=== PATIENT | male | born 1955 | race Caucasian/White ===

== ENCOUNTER → 2021-05-06 | Outpatient (CLI) | payer MEDICARE, OTHER ==
[2021-05-06 16:09] LABS: BILIRUBIN,URINE NEGATIVE (NEGATIVE); CLARITY,URINE CLEAR; COLOR,URINE YELLOW; GLUCOSE, URINE (UA) NEGATIVE (NEGATIVE); KETONES,URINE NEGATIVE (NEGATIVE); LEUKOCYTE ESTERASE ,URINE NEGATIVE (NEGATIVE); NITRITE,URINE NEGATIVE (NEGATIVE); PROTEIN,URINE NEGATIVE (NEGATIVE)
[2021-05-06 16:10] LABS: BASOPHILS % (AUTO) 1 % (0-10); EOSINOPHILS # (AUTO) 0.2 10^3/uL (0.0-0.3); EOSINOPHILS % (AUTO) 3 % (0-10); HEMATOCRIT 42 % (40-54); HEMOGLOBIN 13.7 g/dL (13.3-17.7); LYMPHOCYTES # (AUTO) 1.6 10^3/uL (1.0-4.0); LYMPHOCYTES % (AUTO) 28 % (12-44); MEAN CORPUSCULAR HEMOGLOBIN 30 pg (25-34); MEAN CORPUSCULAR HGB CONC 33 g/dL (32-36); MEAN CORPUSCULAR VOLUME 92 fL (80-99); MEAN PLATELET VOLUME 8.9 fL (9.0-12.2); MONOCYTES # (AUTO) 0.6 10^3/uL (0.0-1.0); MONOCYTES % (AUTO) 10 % (0-12); NEUTROPHILS # (AUTO) 3.3 10^3/uL (1.8-7.8); NEUTROPHILS % (AUTO) 58 % (42-75); PLATELET COUNT 323 10^3/uL (130-400); WHITE BLOOD COUNT 5.6 10^3/uL (4.3-11.0)
[2021-05-06 16:18] LABS: BACTERIA,URINE NEGATIVE /HPF; SQUAMOUS EPITHELIAL CELL,UR RARE /HPF
[2021-05-06 16:30] LABS: POTASSIUM 4.2 MMOL/L (3.6-5.0)
[2021-05-06 16:31] LABS: CALCIUM 9.1 MG/DL (8.5-10.1); INR 0.9 (0.8-1.4); PROTHROMBIN TIME PATIENT 12.8 SEC (12.2-14.7)
[2021-05-06 16:36] LABS: CREATININE SERUM 0.99 MG/DL (0.60-1.30)
== END ==
LOC: CARD 15:28 → EDBD 15:28
PROVIDERS: ATTEND Orthopaedic Surgery
DX: Z01.89 Encounter for other specified special examinations (principal)
CPT/HCPCS: 36415; 80048; 81000; 85025; 85610; 93005

== ENCOUNTER → 2021-05-06 | Outpatient (CLI) | payer MEDICARE, OTHER ==
--- NOTE | 2021-05-06 16:48 | Diagnostic Imaging Report ---
INDICATION: Preoperative evaluation EXAMINATION: PA and lateral views of the chest are obtained. COMPARISON: No previous study is available for comparison at this time. FINDINGS: Heart size and pulmonary vasculature are within normal limits, and the lungs are clear, bilaterally. IMPRESSION: Unremarkable chest. Dictated by: Dictated on workstation # [id number]
== END ==
LOC: EDBD → ORTHO 14:53
PROVIDERS: ATTEND Orthopaedic Surgery
DX: Z01.810 Encounter for preprocedural cardiovascular examination (principal); M17.12 Unilateral primary osteoarthritis, left knee
CPT/HCPCS: 71046; G0463; 99203

== ENCOUNTER 2021-05-15 05:33 | Outpatient (CLI) | payer MEDICARE, OTHER ==
[~2021-05-15] VITALS: Ht 180.3 cm; Wt 63.8 kg
[2021-05-15 08:04] VITALS: BP 143/73
[2021-05-15] MEDS ORDERED: MELO15TA39 PO (12:09)
[2021-05-15] MEDS ORDERED: ASCO100024 PO (12:09)
[2021-05-15] MEDS ORDERED: CALC-250 PO (12:09)
[2021-05-15] MEDS ORDERED: MULT-1056 PO (12:09)
== END 2021-05-15 12:14 ==
LOC: PREOP 05:33 → EDSTATUS 08:00 → PREOP 12:14
PROVIDERS: ATTEND Orthopaedic Surgery
DX: Z01.812 Encounter for preprocedural laboratory examination (principal); M17.12 Unilateral primary osteoarthritis, left knee; Z20.822 Contact with and (suspected) exposure to COVID-19
CPT/HCPCS: 87081; 87635

== ENCOUNTER → 2021-05-15 | Outpatient (CLI) | payer MEDICARE, OTHER ==
[~2021-05-15] MED LIST: ASCO100024 PO; CALC-250 PO; MELO15TA39 PO; MULT-1056 PO
--- NOTE | 2021-05-15 15:08 | Diagnostic Imaging Report ---
EXAMINATION: Left knee radiographs, 4 views. COMPARISON: None. HISTORY: 65-year-old male, left knee pain. FINDINGS: There is severe medial compartment joint space loss and patellofemoral compartment joint space loss. There is no knee joint effusion. There are small patellofemoral compartment osteophytes. There is no identified acute fracture. There is no radiopaque foreign body. The patella is normally positioned. IMPRESSION: Severe medial and patellofemoral compartment osteoarthritis without knee joint effusion. Dictated by: Dictated on workstation # [id number]
== END ==
LOC: RAD 14:21
PROVIDERS: ATTEND Orthopaedic Surgery
DX: M17.12 Unilateral primary osteoarthritis, left knee (principal)
CPT/HCPCS: 73564

== ENCOUNTER 2021-05-19 08:00 | Inpatient (IN) | payer MEDICARE, OTHER ==
[~2021-05-19] VITALS: Ht 180.3 cm; Wt 63.8 kg
[2021-05-19] VITALS (10 sets, daily range): BP systolic 98–136; BP diastolic 63–84
[2021-05-19] MEDS ORDERED: TRANEXAMIC ACID INJECTION 3,000 MG, SODIUM CHLORIDE 0.9% IRRIGATIO 150 ML IR ONE ×2 (08:45)
[2021-05-19] MEDS ORDERED: ceFAZolin INJECTION 1,000 MG in WATER (STERILE) FOR INJECTION 10 ML IV ONE (09:00)
[2021-05-19] MEDS: LACTATED RINGERS 1,000 ML IV PRN ×2 (09:08→10:12)
[2021-05-19] MEDS ORDERED: BISACODYL 5 MG (DULCOLAX) TABLET PO PRN (13:00)
[2021-05-19] MEDS ORDERED: ACETAMINOPHEN 500 MG TAB (TYLENOL) PO PRN (13:00)
[2021-05-19] MEDS ORDERED: ONDANSETRON 4 MG/2 ML (SDV) Z0FRAN IVP PRN (13:00)
[2021-05-19] MEDS ORDERED: HYDROmorphone 2 MG/ML VIAL (DILAUDID) IV ONE (13:00)
[2021-05-19] MEDS ORDERED: morphine INJ 4 MG/ML 1 ML (VIAL/SYRINGE) IV PRN (13:00)
[2021-05-19] MEDS ORDERED: NALOXONE 0.4 MG/ML 1 ML (NARCAN) VIAL IV PRN (13:00)
[2021-05-19] MEDS ORDERED: MILK OF MAGNESIA 400 MG/5 ML 30 ML UDC PO PRN (13:00)
[2021-05-19] MEDS ORDERED: ONDANSETRON 4 MG/2 ML (SDV) Z0FRAN IV PRN (13:00)
--- NOTE | 2021-05-19 13:20 | Operative Report - Ortho ---
Operative Report Surgeon (s)/Museum Technician (s) Surgeon SANDY HILARIO MD Museum Technician n/a Pre-Operative Diagnosis Left Knee Primary Osteoarthritis Post-Operative Diagnosis same Operative Report Date of Procedure: May 19, 2021 Name of Procedure Performed: Left Total Knee Arthroplasty Description & Findings After obtaining informed consent and marking the patient in the preoperative holding area, the patient did receive IV antibiotics. Patient received regional anesthesia. Patient was taken to the operating room and spinal anesthesia was induced. Surgical timeout was taken. The left lower extremity was prepped and draped in the usual sterile fashion. Incision was made and carried down to fascia. Arthrotomy was performed on the medial side of the patella. Patella was retracted laterally and knee was flexed. Found to have circumferential osteophtye around the distal femur as well as exposed bone in the medial compartment. Hole was made in the distal femur for the intramedullary distal femoral cutting guide. Resection was made then the femur was sized as a 6. 4-in-1 block for a size [address]. Anterior cut was made and there was no notch. Posterior cut was made followed by the chamfers. Box cut was performed. Lug holes were drilled. Attention was turned to the tibial side, extramedullary tibial guide was put into place and aligned with the tibial crest. It was set to take 2 mm off of the affected medial side. Drop becky was used to confirm alignment. Resection was made and was parallel to the joint line. Tibial bone block was removed. [place]ina customer service voice was put into place and the menisci and posterior osteophytes were removed. The knee was trialed with a size 6 femur and a size 6 tibia with a 9 mm poly trial. It was found to come out to full extension and flexed to beyond 120 degrees. It was stable to varus and valgus stress throughout its range of motion. This was accepted. Knee was brought out into extension and the patella was prepared for an inset patellar button. Patellar trial was placed and this tracked well through the groove of the trial femur. Trial implants were removed. Tibial trial was pinned and punched. The cut bone surfaces were lavaged with pulsatile normal saline. Implants were opened and assembled on the back table. Cement was mixed. Cement was applied to the cut bone surface as well as the implant surface. A size 6 tibial component was impacted into placed and excess cement was removed using a [place]. A size 6 femoral component was impacted into place and excess cement was removed using a [place]. Tibial tray was lavaged with saline. A 9 mm thick polyethylene component was locked into placed and the locking mechanism was checked. Knee was brought into extension. Patellar surface was irrigated, dried, and then cement was applied. Patellar component was clamped into place and excess cement was removed using the [place]. The knee was irrigated with normal saline. Irrigation was removed and tranexamic acid was placed. Once the cement had set, the knee was once again trialed; found to come to full extension, flexed beyond 120 degrees, and was stable to varus and valgus stress. Further tranexamic acid was applied for hemostasis. Tourniquet was dropped and electrocautery was used for further hemostasis. Fascial layer was closed with #1 Ticron. The subcutaneous layer was closed with 2-0 Vicryl. The skin was closed with a running subcuticular 3-0 V-loc. Wound was dressed with mastisol, steri-strips, xeroform, 4x4s, ABD, webril, and ROHAN wrap. Patient tolerated the procedure well and was stable to the recovery room. Anesthesia Type Spinal plus regional Estimated Blood Loss ~100 mL Specimen(s) collected/removed None SANDY HILARIO MD May 19, 2021 13:20
--- NOTE | 2021-05-19 13:48 | Diagnostic Imaging Report ---
INDICATION: Osteoarthritis. 2 views were obtained. FINDINGS: There are postsurgical changes of a left knee arthroplasty. Hardware is in satisfactory position. There is no loosening. There is no fracture or dislocation. Soft tissues are unremarkable. IMPRESSION: Stable left knee arthroplasty. Dictated by: Dictated on workstation # [id number]
--- NOTE | 2021-05-19 14:54 | Physical Therapy Evaluation ---
PT Evaluation-General Medical Diagnosis Admission Date May 19, 2021 at 08:18 Medical Diagnosis: left TKR Onset Date: May 19, 2021 Therapy Diagnosis Therapy Diagnosis: debility/weakness Precautions Precautions/Isolations: Standard Precautions Weight Bear Status Right Lower Extremity: Right Full Weight Bearing Left Lower Extremity: Left Weight Bearing/Tolerated Referral Physician: Jolynn Reason for Referral: Evaluation/Treatment Medical History Pertinent Medical History: TBI Additional Medical History right TKR Current History s/p elective left TKR Reviewed History: Yes Social History Home: Single Level Current Living Status: Spouse Prior Prior Level of Function SCALE: Activities may be completed with or without assistive devices. 6-Khodckrwog-kxxqebz completes the activity by him/herself with no assistance from a helper. 5-Set-up or Clean-up Assistance-helper sets up or cleans up; patient completes activity. [place] assists only prior to or following the activity. 4-Supervision or Touching Assistance-helper provides verbal cues and/or touching/steadying and/or contact guard assistance as patient completes activity. Assistance may be provided throughout the activity or intermittently. 3-Partial/Moderate Assistance-helper does LESS THAN HALF the effort. [place] lifts, holds or supports trunk or limbs, but provides less than half the effort. 2-Substantial/Maximal Assistance-helper does MORE THAN HALF the effort. [place] lifts or holds trunk or limbs and provides more than half the effort. 8-Zbtbgzbpz-zakykt does ALL the effort. Patient does none of the effort to complete the activity. Or, the assistance of 2 or more helpers is required for the patient to complete the activity. If activity was not attempted, code reason: 7-Patient Refused. 9-Not Applicable-not attempted and the patient did not perform the activity before the current illness, exacerbation or injury. 10-Not Attempted due to Environmental Limitations-(lack of equipment, weather restraints, etc.). 88-Not Attempted due to Medical Conditions or Safety Concerns. Bed Mobility: 6 Transfers (B,C,W/C): 6 Gait: 6 Stairs: 6 Indoor Mobility (Ambulation): Independent Stairs: Independent Prior Device Use: FWW and cane from previous surgeries PT Evaluation-Current Subjective Patient is very sedated. Does wake and open eyes and responds appropriately. Pain Numeric Pain Scale: 0-No Pain Location: No Pain Reported Comment: spinal block per spouse Objective Attachments: Polar Pack, IV ROM/Strength ROM Lower Extremities left knee flexion 80 degrees AROM with 10 degrees extension/right LE WFL Strength Lower Extremities 05/19/21 - spinal block/MMT NT 05/20/21 - right LE 4/5 grossly; left LE 3/5 grossly Integumentary/Posture Integumentary refer to nursing notes Bowel Incontinence: No Bladder Incontinence: No Posture trunk flexed posture in stand Neuromuscular (Tone, Coordination, Reflexes) diminished coordination due to old TBI Sensory Vision: Functional Hearing: Impaired Transfers Roll Left to Right (QC): 6 Sit to Lying (QC): 6 Lying to Sitting/Side of Bed(Q: 6 Sit to Stand (QC): 4 Chair/Msh-eo-Yrjdu Xfer(QC): 4 Gait Does the Patient Walk?: Yes Mode of Locomotion: Walk Anticipated Mode of Locomotion: Walk Walk 10 feet (QC): 4 Walk 50 ft with 2 Turns(QC): 4 Walk 150 ft (QC): 4 Distance: 250' Gait Assistive Device: FWW Comments/Gait Description steady, step to gait sequence with CGA for safety Wheelchair Training Does the Pt Use a Wheelchair?: No Balance Sitting Static: Normal Sitting Dynamic: Normal Standing Static: Fair Standing Dynamic: Fair Treatment 05/19/21 due to spinal block no OOB activity performed/CPM in place left LE 0-50 degr Assessment/Needs Evaluation initiated 05/19/21 and PT will complete 05/20/21 due to patient sedation, spinal block and inability to safely perform OOB activity. 05/20/21 Patient displays impaired mobility and will benefit from skilled PT to address functional mobility and strength. Rehab Potential: Good PT Snf Goals Mediator Goals PT Snf Goals Time Frame: May 24, 2021 Roll Left & Right (QC): 6 Sit to Lying (QC): 6 Lying-Sitting on Side/Bed(QC): 6 Sit to Stand (QC): 6 Chair/Oda-mt-Rubmr Xfer(QC): 6 Toilet Transfer (QC): 6 Car Transfer (QC): 6 Walk 10 feet (QC): 6 Walk 50ft with 2 Turns (QC): 6 Walk 150 ft (QC): 6 PT Plan Treatment/Plan Treatment Plan: Continue Plan of Care Treatment Plan: Education, Functional Activity Tracy, Functional Strength, Gait, Safety, Therapeutic Exercise, Transfers Treatment Duration: May 24, 2021 Frequency: 11 times per week Estimated Hrs Per Day: 1 hour per day Time/GCodes Time In: 750 Time Out: 819 Total Billed Treatment Time: 29 Total Billed Treatment 05/20/21 1 visit EVModC 13 min GT 16 min 05/19/21 1 visit, CPM and Pads ([id number]) VINNY ARMIJO PT May 19, 2021 14:53
[2021-05-19] MEDS: ceFAZolin INJECTION 1,000 MG in WATER (STERILE) FOR INJECTION 10 ML IV SCH (18:17)
[2021-05-19] MEDS: ASPIRIN E.C. 81 MG (ECOTRIN) TAB PO SCH (20:47)
[2021-05-19] MEDS: DOCUSATE SODIUM 100 MG (COLACE) CAP PO SCH (20:47)
[2021-05-19] MEDS: CELECOXIB 100 MG (CeleBREX) CAP PO SCH (20:48)
[2021-05-20] VITALS (7 sets, daily range): BP systolic 105–156; BP diastolic 70–83
[2021-05-20] MEDS: ceFAZolin INJECTION 1,000 MG in WATER (STERILE) FOR INJECTION 10 ML IV SCH ×2 (01:08→10:31)
[2021-05-20 04:25] LABS: HEMOGLOBIN 12.8 g/dL (13.3-17.7)
[2021-05-20] MEDS: MULTIVIT W/MINERALS TAB (THERAGRAN M) PO SCH (06:23)
--- NOTE | 2021-05-20 07:52 | Anesthesia-Regional Post-Op ---
Regional Patient Condition Mental Status: Alert, Oriented x3 Circulation: Same as Pre-Op Headache: Absent Sensation: Full Recovery Motor Block: Absent Post Op Complications Complications None Follow Up Care/Instructions Patient Instructions None needed. Anesthesia/Patient Condition Patient is doing well, no complaints, stable vital signs, no apparent adverse anesthesia problems. No complications reported per nursing. D/C home per [facility] Criteria: No LEONEL GUTHRIE CRNA May 20, 2021 07:52
[2021-05-20] MEDS: VITAMIN D3 125 MCG (5,000 UNITS) CAPSULE PO SCH (08:31)
[2021-05-20] MEDS: CELECOXIB 100 MG (CeleBREX) CAP PO SCH ×2 (08:31→20:08)
[2021-05-20] MEDS: DOCUSATE SODIUM 100 MG (COLACE) CAP PO SCH ×2 (08:31→20:08)
[2021-05-20] MEDS: ASPIRIN E.C. 81 MG (ECOTRIN) TAB PO SCH ×2 (08:31→20:08)
--- NOTE | 2021-05-20 09:06 | Progress Note - Ortho ---
Progress Note Subjective Date of Exam 05/20/21 Chief Complaint Left Knee Pain HPI/Events since last exam Ortho POD #1 L TKA had some trouble with pain through the night, difficulty sleeping, up in chair this AM and pain is better currently Review of Systems n/a Allergies: Coded Allergies: No Known Drug Allergies (Unverified , 05/15/21) Home Meds Reported Medications Multivit-Min/FA/Lycopen/Lutein (Men 50 Plus Multivitamin Tab) 1 Each Tablet, 1 EACH PO DAILY, TAB 05/15/21 Cholecalciferol (Vitamin D3) (Vitamin D3) 125 Mcg Tablet, 125 MCG PO DAILY, TAB 05/15/21 Ascorbic Acid (Vitamin C) 1,000 Mg Tablet, 1000 MG PO DAILY, TAB 05/15/21 Meloxicam (Meloxicam) 15 Mg Tablet, 15 MG PO DAILY, TAB 05/15/21 Objective Exam L Knee: dressing c/d/i, calf compressible and nontender, demonstrates dorsiflexion of ankle Post op x-rays were reviewed from PACS and demonstrated total knee arthroplasty with components in good position without complication Vital Signs Vital Signs Date Time Temp Pulse Resp B/P (MAP) Pulse Ox O2 Delivery O2 Flow Rate FiO2 05/20/21 08:00 Room Air 05/20/21 07:44 37.0 104 20 150/72 (98) 96 Room Air 05/20/21 04:00 36.8 92 17 128/76 (93) 95 Room Air 05/20/21 00:00 36.9 95 18 105/74 (84) 98 Room Air 05/19/21 20:40 Room Air 05/19/21 20:07 37.5 81 18 128/66 (86) 99 Room Air 05/19/21 15:42 35.6 56 18 123/71 (88) 100 Room Air 05/19/21 13:45 Room Air 05/19/21 13:40 36.4 18 126/84 (98) 100 Room Air 05/19/21 13:40 36.0 66 16 120/68 (85) 97 Room Air 05/19/21 13:40 Room Air 05/19/21 13:30 18 123/81 (95) 100 Room Air 05/19/21 13:26 Room Air 05/19/21 13:22 Room Air 05/19/21 13:20 18 116/75 (89) 99 Room Air 05/19/21 13:13 Room Air 05/19/21 13:10 18 115/69 (84) 100 Room Air 05/19/21 13:06 OxyMask 2 05/19/21 13:00 18 116/73 (87) 100 OxyMask 6 05/19/21 13:00 OxyMask 2 05/19/21 12:50 18 103/66 (78) 100 OxyMask 6 05/19/21 12:45 OxyMask 2 05/19/21 12:45 36.2 12 98/63 (75) 99 OxyMask 6 I & O 05/20/21 07:00 Intake Total 3010 ml Output Total 2200 ml Balance 810 ml Lab Results Laboratory Tests 05/20/21 04:17: Hemoglobin 12.8L, Hematocrit 38L Assessment and Plan Assessment s/p L TKA Problem List z09 Plan Cont PT/OT DVT Prophylaxis Plan for home with home health on Final Diagonsis z09 postop Level of the visit: Level 3 (global) SANDY HILARIO MD May 20, 2021 09:06
--- NOTE | 2021-05-20 11:33 | Occupational Therapy Eval ---
OT Evaluation-General/PLF Medical Diagnosis Admission Date May 19, 2021 at 08:18 Medical Diagnosis: left TKR Onset Date: May 19, 2021 Therapy Diagnosis Therapy Diagnosis: decreased ADL status Precautions Precautions/Isolations: Standard Precautions Referral Physician: Jolynn Referral Reason: Evaluation/Treatment Medical History Additional Medical History R TKR Current History s/p L TKR 05/19/21 Social History Home: Single Level Current Living Status: Spouse ADL-Prior Level of Function SCALE: Activities may be completed with or without assistive devices. 9-Fpatopdleu-egziivx completes the activity by him/herself with no assistance from a helper. 5-Set-up or Clean-up Assistance-helper sets up or cleans up; patient completes activity. [place] assists only prior to or following the activity. 4-Supervision or Touching Assistance-helper provides verbal cues and/or touching/steadying and/or contact guard assistance as patient completes activity. Assistance may be provided throughout the activity or intermittently. 3-Partial/Moderate Assistance-helper does LESS THAN HALF the effort. [place] lifts, holds or supports trunk or limbs, but provides less than half the effort. 2-Substantial/Maximal Assistance-helper does MORE THAN HALF the effort. [place] lifts or holds trunk or limbs and provides more than half the effort. 5-Bohcfbrun-mcyksb does ALL the effort. Patient does none of the effort to complete the activity. Or, the assistance of 2 or more helpers is required for the patient to complete the activity. If activity was not attempted, code reason: 7-Patient Refused. 9-Not Applicable-not attempted and the patient did not perform the activity before the current illness, exacerbation or injury. 10-Not Attempted due to Environmental Limitations-(lack of equipment, weather restraints, etc.). 88-Not Attempted due to Medical Conditions or Safety Concerns. ADL PLOF Comments Pt reports IND with ADLs and functional mobility at PLOF, uses cane occasionally. Self Care: Independent Functional Cognition: Independent DME/Equipment: Bath Chair, Shower Hose Milking Machine Operator, Tub/Shower OT Current Status Subjective Pt laying in bed, agreeable to OT tx. Pt did not verbalize pain during session Mental Status/Objective Patient Orientation: Person, Place, Situation Current Hand Dominance: Right Upper Extremity ROM WFL, BUE shoulder flexion to approx 130 degrees Upper Extremity Coordination WFL Upper Extremity Sensation WFL, pt denies tingling/numbness Upper Extremity Strength grossly 4+/5 ADL-Treatment Eating (QC): 6 (Per pt report) On/Off Footwear (QC): 3 (Min A donning L slip on shoe, Pt able to don R) Toileting Hygiene (QC): 4 (CGA) Other Treatments Pt transferred supine to sit EOB, SBA. Pt donned slip on shoes at EOB. CGA sit to stand from EOB, then used FWW to go into bathroom, CGA. Pt stood at toilet to complete toileting, CGA, then stood at sink to wash his hands, CGA. Pt transferred to recliner. OT assisted pt with dialing dietary, pt then able to place lunch order. Post tx, pt up in recliner, call light in reach and all needs met. Education OT Patient Education: Correct positioning, Modified ADL techniques, Progress toward Goal/Update tx plan, Purpose of tx/functional activities, Rehab process Teaching Recipient: Patient Teaching Methods: Discussion Response to Teaching: Verbalize Understanding OT Senior Living Goals Senior Living Goals Time Frame: May 28, 2021 Eating (QC): 6 Oral Hygiene (QC): 6 Toileting Hygiene (QC): 6 Shower/Bathe Self (QC): 6 Upper Body Dressing (QC): 6 Lower Body Dressing (QC): 6 On/Off Footwear (QC): 6 Additional Goals: 1-Demonstrate ADL Tasks, 2-Verbalize Understanding, 3- ImproveStrength/Tracy 1=Demonstrate adherence to instructed precautions during ADL tasks. 2=Patient will verbalize/demonstrate understanding of assistive devices/modifications for ADL. 3=Patient will improve strength/tolerance for activity to enable patient to perform ADL's. OT Education/Plan Problem List/Assessment Assessment: Decreased Activ Tolerance, Decreased UE Strength, Impaired Funct Balance, Impaired I ADL's, Impaired Self-Care Skills Discharge Recommendations Plan/Recommendations: Continue POC Treatment Plan/Plan of Care Patient would benefit from OT for education, treatment and training to promote independence in ADL's, mobility, safety and/or upper extremity function for ADL's. Plan of Care: ADL Retraining, Functional Mobility, UE Funct Exercise/Act Treatment Duration: May 28, 2021 Frequency: 5 times per week Estimated Hrs Per Day: .25 hour per day Rehab Potential: Good Time/GCodes Start Time: 10:52 Stop Time: 11:09 Total Time Billed (hr/min): 17 Billed Treatment Time 1, MILAGROS YAO OT May 20, 2021 11:33
--- NOTE | 2021-05-20 14:25 | Physical Therapy Daily Note ---
PT Daily Note-Current Subjective Patient agrees to PT. Currently on CPM Mental Status Patient Orientation: Normal For Age Attachments: Polar Pack Transfers SCALE: Activities may be completed with or without assistive devices. 6-Nwbkukheeu-ahckarq completes the activity by him/herself with no assistance from a helper. 5-Set-up or Clean-up Assistance-helper sets up or cleans up; patient completes activity. [place] assists only prior to or following the activity. 4-Supervision or Touching Assistance-helper provides verbal cues and/or touching/steadying and/or contact guard assistance as patient completes activity. Assistance may be provided throughout the activity or intermittently. 3-Partial/Moderate Assistance-helper does LESS THAN HALF the effort. [place] lifts, holds or supports trunk or limbs, but provides less than half the effort. 2-Substantial/Maximal Assistance-helper does MORE THAN HALF the effort. [place] lifts or holds trunk or limbs and provides more than half the effort. 6-Ictxtgdgu-eyijan does ALL the effort. Patient does none of the effort to complete the activity. Or, the assistance of 2 or more helpers is required for the patient to complete the activity. If activity was not attempted, code reason: 7-Patient Refused. 9-Not Applicable-not attempted and the patient did not perform the activity before the current illness, exacerbation or injury. 10-Not Attempted due to Environmental Limitations-(lack of equipment, weather restraints, etc.). 88-Not Attempted due to Medical Conditions or Safety Concerns. Roll Left & Right (QC): 6 Sit to Lying (QC): 6 Lying to Sitting/Side of Bed(Q: 6 Sit to Stand (QC): 4 Weight Bearing Right Lower Extremity: Right Full Weight Bearing Left Lower Extremity: Left Weight Bearing/Tolerated Gait Training Does the Patient Walk?: Yes Distance: 275' Walk 10 feet (QC): 4 Walk 50 ft with 2 Turns(QC): 4 Walk 150 ft (QC): 4 Gait Assistive Device: FWW slightly unsteady with self correct Exercises Supine Ex: Ankle pumps, Quad Set, Heel Slides, Straight leg raise Supine Reps: 12 Seated Therapy Exercises: Long arc quads Seated Reps: 15 Assessment Current Status: Excellent Progress Patient is progressing with treatment plan and will dismiss to home with spouse this week. PT Head Bellhop Captain Goals [facility] Goals PT Head Bellhop Captain Goals Time Frame: May 24, 2021 Roll Left & Right (QC): 6 Sit to Lying (QC): 6 Lying-Sitting on Side/Bed(QC): 6 Sit to Stand (QC): 6 Chair/Nro-vl-Ijcln Xfer(QC): 6 Toilet Transfer (QC): 6 Car Transfer (QC): 6 Walk 10 feet (QC): 6 Walk 50ft with 2 Turns (QC): 6 Walk 150 ft (QC): 6 PT Plan Treatment/Plan Treatment Plan: Continue Plan of Care Treatment Plan: Education, Functional Activity Tracy, Functional Strength, Gait, Safety, Therapeutic Exercise, Transfers Treatment Duration: May 24, 2021 Frequency: 11 times per week Estimated Hrs Per Day: 1 hour per day Time/GCodes Time In: 1330 Time Out: 1353 Total Billed Treatment Time: 23 Total Billed Treatment 1 visit EX 13 min GT 10 min VINNY ARMIJO PT May 20, 2021 14:25
[2021-05-21 03:49] VITALS: BP 136/75
[2021-05-21] MEDS: MULTIVIT W/MINERALS TAB (THERAGRAN M) PO SCH (05:18)
[2021-05-21 06:01] LABS: HEMOGLOBIN 12.5 g/dL (13.3-17.7)
[2021-05-21 08:18] VITALS: BP 130/73
[2021-05-21] MEDS: CELECOXIB 100 MG (CeleBREX) CAP PO SCH (08:40)
[2021-05-21] MEDS: ASPIRIN E.C. 81 MG (ECOTRIN) TAB PO SCH (08:41)
[2021-05-21] MEDS: DOCUSATE SODIUM 100 MG (COLACE) CAP PO SCH (08:41)
[2021-05-21] MEDS: VITAMIN D3 125 MCG (5,000 UNITS) CAPSULE PO SCH (08:41)
--- NOTE | 2021-05-21 08:52 | Physical Therapy Daily Note ---
PT Daily Note-Current Subjective Patient in recliner pre tx, agrees to PT, has unrated pain in left knee. Appearance Patient in recliner post tx with nurse call, phone, tray, all needs met. Mental Status Patient Orientation: Person, Place, Situation Transfers SCALE: Activities may be completed with or without assistive devices. 8-Lilfwedzpr-mxgmpvw completes the activity by him/herself with no assistance from a helper. 5-Set-up or Clean-up Assistance-helper sets up or cleans up; patient completes activity. [place] assists only prior to or following the activity. 4-Supervision or Touching Assistance-helper provides verbal cues and/or touching/steadying and/or contact guard assistance as patient completes activity. Assistance may be provided throughout the activity or intermittently. 3-Partial/Moderate Assistance-helper does LESS THAN HALF the effort. [place] lifts, holds or supports trunk or limbs, but provides less than half the effort. 2-Substantial/Maximal Assistance-helper does MORE THAN HALF the effort. [place] lifts or holds trunk or limbs and provides more than half the effort. 4-Ryukqdpxg-mlhbsr does ALL the effort. Patient does none of the effort to complete the activity. Or, the assistance of 2 or more helpers is required for the patient to complete the activity. If activity was not attempted, code reason: 7-Patient Refused. 9-Not Applicable-not attempted and the patient did not perform the activity before the current illness, exacerbation or injury. 10-Not Attempted due to Environmental Limitations-(lack of equipment, weather restraints, etc.). 88-Not Attempted due to Medical Conditions or Safety Concerns. Sit to Stand (QC): 4 Chair/Hsp-si-Swxch Xfer(QC): 4 SBA Weight Bearing Right Lower Extremity: Right Full Weight Bearing Left Lower Extremity: Left Weight Bearing/Tolerated Gait Training Distance: 200' Walk 10 feet (QC): 4 Walk 50 ft with 2 Turns(QC): 4 Walk 150 ft (QC): 4 Gait Persons Needed: 1 Gait Assistive Device: FWW SBA, slow but steady ambulation, slightly flexed left knee Exercises Seated Therapy Exercises: Ankle pumps, Long arc quads, Hamstring Curls Seated Reps: 20 Treatments transfers, ,ambulation, LE ROM Assessment Current Status: Good Progress, Fair Progress progressing well PT Nursing Home Goals Nursing Home Goals PT Library Media Specialist Goals Time Frame: May 24, 2021 Roll Left & Right (QC): 6 Sit to Lying (QC): 6 Lying-Sitting on Side/Bed(QC): 6 Sit to Stand (QC): 6 Chair/Whj-mt-Ojuac Xfer(QC): 6 Toilet Transfer (QC): 6 Car Transfer (QC): 6 Walk 10 feet (QC): 6 Walk 50ft with 2 Turns (QC): 6 Walk 150 ft (QC): 6 PT Plan Problem List Problem List: Activity Tolerance, Functional Strength, Safety, Balance, Gait, Transfer, ROM Treatment/Plan Treatment Plan: Continue Plan of Care Treatment Plan: Education, Functional Activity Tracy, Functional Strength, Gait, Safety, Therapeutic Exercise, Transfers Treatment Duration: May 24, 2021 Frequency: 11 times per week Estimated Hrs Per Day: 1 hour per day Safety Risks/Education Patient Education: Gait Training, Transfer Techniques, Correct Positioning, Safety Issues Teaching Recipient: Patient Teaching Methods: Demonstration, Discussion Response to Teaching: Reinforcement Needed Time/GCodes Time In: 812 Time Out: 823 Total Billed Treatment Time: 11 Total Billed Treatment 1 visit FA NIK DELVALLE PT May 21, 2021 08:52
[2021-05-21] MEDS ORDERED: OXC5T PO (09:52)
[2021-05-21] MEDS ORDERED: ASPI-1238 PO (09:52)
--- NOTE | 2021-05-21 10:14 | Discharge Summary ---
Discharge Summary Hospital Course Problems/Dx: (1) Encounter for examination following surgery Status: Acute Hospital Course Date of Admission: May 19, 2021 at 08:18 Admission Diagnosis : Left Knee Primary Osteoarthritis Date of Discharge: 05/21/21 Discharge Diagnosis: Left Knee Primary Osteoarthritis Hospital Course: Admitted on 05/19/21. Underwent left total knee arthroplasty. Tolerated the procedure well and was admitted to the regular floor. On the day of surgery, he did start DVT prophylaxis and therapy/use of the CPM. On POD #1, his pain was essentially controlled on oral regimen. He progressed with therapy. Arrangements were made for home health. On POD #2, he continued to improve from a mobility standpoint. His pain remained controlled. He was ready for discharge home. Labs and Pending Lab Test: Laboratory Tests 05/21/21 05:50: Hemoglobin 12.5L, Hematocrit 36L Microbiology 05/19/21 MRSA Screen - Final, Complete MRSA not isolated Home Meds Active Aspirin EC (Aspirin) 81 Mg Tablet.dr 81 Mg PO BID 14 Days Reported Men 50 Plus Multivitamin Tab (Multivit-Min/FA/Lycopen/Lutein) 1 Each Tablet 1 Each PO DAILY Vitamin D3 (Cholecalciferol (Vitamin D3)) 125 Mcg Tablet 125 Mcg PO DAILY Vitamin C (Ascorbic Acid) 1,000 Mg Tablet 1,000 Mg PO DAILY Meloxicam 15 Mg Tablet 15 Mg PO DAILY Assessment/Pt Instructions Walker for ambulatory assistance. Dry dressing daily to left knee incision site. Home health physical therapy for ROM, strengthening, and gait training. Follow up ~2 weeks from date of surgery in office. Discharge Instructions Discharge Diet: No Restrictions Discharge Physical Examination Vital Signs Vital Signs Date Time Temp Pulse Resp B/P (MAP) Pulse Ox O2 Delivery O2 Flow Rate FiO2 05/21/21 08:18 36.2 120 20 130/73 (92) 98 Room Air 05/19/21 13:06 2 Extremity: Other (Left Knee: Incision C/D/I, no s/s of DVT, + DF of ankle) Allergies: Coded Allergies: morphine (Verified Allergy, Unknown, 05/20/21) reaction unknown Discharge Summary Date of Admission May 19, 2021 at 08:18 Date of Discharge SANDY HILARIO MD May 21, 2021 10:14
[2021-05-21 12:02] VITALS: BP 151/72
--- NOTE | 2021-05-21 13:58 | Physical Therapy Daily Note ---
PT Daily Note-Current Subjective Patient in recliner pre tx, agrees to PT, has unrated pain in left knee. Appearance Patient in recliner post tx with nurse call, phone, tray, all needs met. Mental Status Patient Orientation: Person, Place, Situation Transfers SCALE: Activities may be completed with or without assistive devices. 4-Dknrmukdxg-nhnessy completes the activity by him/herself with no assistance from a helper. 5-Set-up or Clean-up Assistance-helper sets up or cleans up; patient completes activity. [place] assists only prior to or following the activity. 4-Supervision or Touching Assistance-helper provides verbal cues and/or touching/steadying and/or contact guard assistance as patient completes activity. Assistance may be provided throughout the activity or intermittently. 3-Partial/Moderate Assistance-helper does LESS THAN HALF the effort. [place] lifts, holds or supports trunk or limbs, but provides less than half the effort. 2-Substantial/Maximal Assistance-helper does MORE THAN HALF the effort. [place] lifts or holds trunk or limbs and provides more than half the effort. 7-Pqktfphqz-syzxzh does ALL the effort. Patient does none of the effort to complete the activity. Or, the assistance of 2 or more helpers is required for the patient to complete the activity. If activity was not attempted, code reason: 7-Patient Refused. 9-Not Applicable-not attempted and the patient did not perform the activity before the current illness, exacerbation or injury. 10-Not Attempted due to Environmental Limitations-(lack of equipment, weather restraints, etc.). 88-Not Attempted due to Medical Conditions or Safety Concerns. Sit to Stand (QC): 5 Chair/Gma-en-Bmbqo Xfer(QC): 5 Weight Bearing Right Lower Extremity: Right Full Weight Bearing Left Lower Extremity: Left Weight Bearing/Tolerated Gait Training Distance: 300' Walk 10 feet (QC): 5 Walk 50 ft with 2 Turns(QC): 5 Walk 150 ft (QC): 5 Gait Assistive Device: FWW (5) slow but steady ambulation Stair Training Stair Training: Handrails/: 2 handrails #of Steps: 10 1 Step (curb) (QC): 4 4 Steps (QC): 4 Stairs: Pattern: Step to Patient went up and down 10 steps using 2 handrails with SBA, cues for foot placement Exercises Seated Therapy Exercises: Ankle pumps, Long arc quads, Hamstring Curls Seated Reps: 20 Treatments transfers, ambulation, stair training, LE strengthening Assessment Current Status: Fair Progress SBA with stairs PT Retirement Goals Flight Control Tower Operator Goals PT Flight Control Tower Operator Goals Time Frame: May 24, 2021 Roll Left & Right (QC): 6 Sit to Lying (QC): 6 Lying-Sitting on Side/Bed(QC): 6 Sit to Stand (QC): 6 Chair/Jiv-km-Ukxkp Xfer(QC): 6 Toilet Transfer (QC): 6 Car Transfer (QC): 6 Walk 10 feet (QC): 6 Walk 50ft with 2 Turns (QC): 6 Walk 150 ft (QC): 6 PT Plan Problem List Problem List: Activity Tolerance, Functional Strength, Safety, Balance, Gait, Transfer, ROM Treatment/Plan Treatment Plan: Continue Plan of Care Treatment Plan: Education, Functional Activity Tracy, Functional Strength, Gait, Safety, Therapeutic Exercise, Transfers Treatment Duration: May 24, 2021 Frequency: 11 times per week Estimated Hrs Per Day: 1 hour per day Time/GCodes Time In: 1314 Time Out: 1330 Total Billed Treatment Time: 16 Total Billed Treatment 1 visit FA NIK COTTRELL PT May 21, 2021 13:58
--- NOTE | 2021-05-21 14:44 | Occ Therapy Progress Note ---
Therapy Progress Note OT visited with pt. Pt indicates he is waiting on signing discharge papers so he can leave. Pt indicates he has no concerns with his ability to complete ADLS upon returning home and is planning on discharging this afternoon. Pt declines OT tx at this time. D/C from OT at this time due to pt having no further concerns with ADLs and being at PLOF. 1, visit 1415 MILAGROS JUAN OT May 21, 2021 14:44
--- NOTE | 2021-05-22 09:25 | D/C HH Face to Face Order ---
D/C Face to Face Orders Instructions for Patient [facility], Patient Instructions/FollowUp: [address] Clifford Noriega Physician to follow Patient: Clifford Noriega M.D. Discharge Diet for Home: No Restrictions Patient Data-Allergies,Ht & Wt Patient Allergies: Coded Allergies: morphine (Verified Allergy, Unknown, 05/20/21) reaction unknown Home Health Need/Face to Face Date of Face to Face: May 21, 2021 Clinical Findings: Muscle weakness, Pain with ambulation, Unsteady gait I have seen Pt xjzl-nl-nuwt: Yes Discharged To: Home Diagnosis/Conditions: s/p L TKA Patient is Homebound due to: Shivani fall risk due to instabilty, Muscle weakness, Pain w/ambulation Homebound Status Due to the above stated illness, injury or surgical procedure (medical condition or diagnosis) and associated clinical findings, the patient is homebound because of his/her inability to leave home except with aid of a supportive device and/or person AND leaving the home requires a considerable and taxing effort or is medically contraindicated. Pt req the following assistanc: Aid of another person, Walker Home Health Nursing Orders Home Health Services Order: Physical Therapy-Evaluate & Treat Home Health Infusion Therapy Line Start Date: May 19, 2021 Certify Stmt I certify that this patient is under my care and that I, a nurse practitioner or a physician; a pharmacy technician assistant working with me, had a face to face encounter that - meets the physician face to face encounter requirements with this patient as dated. CLIFFORD NORIEGA MD May 21, 2021 15:59
== END 2021-05-21 15:55 | disposition home health service (06) | DRG 470 ==
LOC: 4TH 08:18 → SURG 08:19 → 4TH 14:11
PROVIDERS: ADMIT Orthopaedic Surgery; ATTEND Orthopaedic Surgery
PROC: 0SRD0J9 Replacement of Left Knee Joint with Synthetic Substitute, Cemented, Open Approach (ICD-10-PCS; principal; 2021-05-19 10:11)
DX: M17.12 Unilateral primary osteoarthritis, left knee (principal); Z96.642 Presence of left artificial hip joint; Z96.651 Presence of right artificial knee joint; Z88.5 Allergy status to narcotic agent; Z79.1 Long term (current) use of non-steroidal anti-inflammatories (NSAID)
CPT/HCPCS: 36415; 73560; 85014; 85018; 86850; 86900; 86901; 87081

== ENCOUNTER → 2021-06-03 | Outpatient (CLI) | payer MEDICARE, OTHER ==
[~2021-06-03] MED LIST changes: +ASPI-1238 PO; +OXC5T PO
== END ==
LOC: ORTHO 09:15
PROVIDERS: ATTEND Orthopaedic Surgery
DX: Z47.89 Encounter for other orthopedic aftercare (principal)

== ENCOUNTER → 2021-07-01 | Outpatient (CLI) | payer MEDICARE, OTHER ==
--- NOTE | 2021-07-01 11:03 | Diagnostic Imaging Report ---
INDICATION: Followup TKA left knee. COMPARISON: 05/19/2021. FINDINGS: The components are all in good alignment. No evidence of hardware loosening. There are no cortical bony fractures. IMPRESSION: Satisfactory appearing total arthroplasty left knee. Dictated by: Dictated on workstation # [id number]
== END ==
LOC: ORTHO 10:37
PROVIDERS: ATTEND Orthopaedic Surgery
DX: Z09 Encounter for follow-up examination after completed treatment for conditions other than malignant neoplasm (principal); Z96.652 Presence of left artificial knee joint
CPT/HCPCS: 73560

== ENCOUNTER → 2021-08-12 | Outpatient (CLI) | payer MEDICARE, OTHER | LOC: ORTHO 11:00 | PROVIDERS: ATTEND Orthopaedic Surgery | DX: Z47.89 Encounter for other orthopedic aftercare (principal) ==

== ENCOUNTER → 2022-05-12 | Outpatient (CLI) | payer MEDICARE, OTHER ==
--- NOTE | 2022-05-12 15:46 | Diagnostic Imaging Report ---
HISTORY: Left hip pain TECHNIQUE: 2 views of the left hip COMPARISON: None FINDINGS: There is a left total hip arthroplasty. No hardware complication is seen. No acute fracture is seen in the left hip. There is calcific atherosclerosis. IMPRESSION: 1. Left hip arthroplasty with no hardware complication seen. Dictated by: Dictated on workstation # [id number]
--- NOTE | 2022-05-12 17:37 | Diagnostic Imaging Report ---
INDICATION: Encounter for orthopedic aftercare, follow up knee replacement COMPARISON: 07/01/2021 TECHNIQUE: 4 radiographs of the bilateral knees are obtained dated 08/11/2022 FINDINGS: Left: Left total knee arthroplasty is in place without evidence of hardware complication. No acute fracture or dislocation. Small knee joint effusion. Infrapatellar soft tissue swelling. Mild background vascular calcifications. Right: Right total knee arthroplasty without evidence of hardware complication. No acute fracture or dislocation. Tiny knee joint effusion. Soft tissue calcifications are seen overlying the expected location of the distal quadriceps tendon. Minimal infrapatellar soft tissue swelling. IMPRESSION: Bilateral total knee arthroplasties without evidence of hardware complication or acute osseous abnormality. Small left and tiny right knee joint effusions. Mild infrapatellar soft tissue swelling bilaterally. Calcifications overlying the distal right quadriceps tendon, which may be postsurgical in nature or relate to remote trauma to the region. Dictated by: Dictated on workstation # [id number]
== END ==
LOC: ORTHO 10:16
PROVIDERS: ATTEND Orthopaedic Surgery
DX: M25.461 Effusion, right knee (principal); M25.462 Effusion, left knee; Z96.652 Presence of left artificial knee joint; Z96.651 Presence of right artificial knee joint
CPT/HCPCS: 73502; 73560; G0463; 99213

== ENCOUNTER 2022-05-30 17:03 | Emergency (ER) | payer MEDICARE, OTHER ==
[~2022-05-30] VITALS: Ht 180 cm; Wt 64.0 kg
[2022-05-30 17:23] LABS: BASOPHILS # (AUTO) 0.1 10^3/uL (0.0-0.1); BASOPHILS % (AUTO) 0 % (0-10); EOSINOPHILS # (AUTO) 0.1 10^3/uL (0.0-0.3); EOSINOPHILS % (AUTO) 0 % (0-10); HEMATOCRIT 41 % (40-54); HEMOGLOBIN 14.4 g/dL (13.3-17.7); LYMPHOCYTES # (AUTO) 1.1 10^3/uL (1.0-4.0); LYMPHOCYTES % (AUTO) 10 % (12-44); MEAN CORPUSCULAR HEMOGLOBIN 31 pg (25-34); MEAN CORPUSCULAR HGB CONC 35 g/dL (32-36); MEAN CORPUSCULAR VOLUME 87 fL (80-99); MEAN PLATELET VOLUME 9.3 fL (9.0-12.2); MONOCYTES # (AUTO) 0.7 10^3/uL (0.0-1.0); MONOCYTES % (AUTO) 6 % (0-12); NEUTROPHILS # (AUTO) 9.3 10^3/uL (1.8-7.8); NEUTROPHILS % (AUTO) 83 % (42-75); PLATELET COUNT 298 10^3/uL (130-400); WHITE BLOOD COUNT 11.2 10^3/uL (4.3-11.0)
--- NOTE | 2022-05-30 17:24 | ED Abdominal Pain ---
General Chief Complaint: Abdominal/GI Problems Stated Complaint: VOMITING BACK/ABD PAIN Nursing Triage Note: RIGHT SIDED FLANK PAIN STARTING ABOUT 2PM TODAY. Source of Information: Patient, Family Exam Limitations: No Limitations History of Present Illness Date Seen by Provider: May 30, 2022 Time Seen by Provider: 17:10 Initial Comments Patient to the ER by private conveyance with his and daughter and chief complaint that he has had nausea vomiting since about 3:00 this afternoon. He is also having some pain in his right lower quadrant abdomen. He has a history of bilateral inguinal hernias when he was an infant but no other abdominal surgeries. Has had a [facility] the [facility] with no [facility]ps seen. He had a bowel movement this morning at around 8:00 AM that was normal. He is not having any dysuria. He has a history of kidney stones and about 2 weeks ago he was having severe right flank pain but it passed on its own spontaneously and he did not get it checked out. He did take a couple tablets of Tylenol and promptly vomited them up earlier today. He is not having any fevers or chills. Allergies and Home Medications Allergies Coded Allergies: morphine (Verified Allergy, Unknown, 05/20/21) reaction unknown Patient Home Medication List Home Medication List Reviewed: Yes Ascorbic Acid (Vitamin C) 1,000 Mg Tablet, 1,000 MG PO DAILY, (Reported) Entered as Reported by: ROSA CORONEL on 05/15/21 1209 Aspirin (Aspirin EC) 81 Mg Tablet.dr, 81 MG PO BID Prescribed by: SANDY HILARIO MD on 05/21/21 0952 Cholecalciferol (Vitamin D3) (Vitamin D3) 125 Mcg Tablet, 125 MCG PO DAILY, (Reported) Entered as Reported by: ROSA CORONEL on 05/15/21 1209 Meloxicam (Meloxicam) 15 Mg Tablet, 15 MG PO DAILY, (Reported) Entered as Reported by: ROSA CORONEL on 05/15/21 1209 Multivit-Min/FA/Lycopen/Lutein (Men 50 Plus Multivitamin Tab) 1 Each Tablet, 1 EACH PO DAILY, (Reported) Entered as Reported by: ROSA CORONEL on 05/15/21 1209 Oxycodone Hcl (Oxyir Tablet) 5 Mg Tab, 5 MG PO Q6H PRN for PAIN-SEE DOSE INSTRUCTIONS Prescribed by: SANDY HILARIO MD on 05/21/21 1009 Review of Systems Review of Systems Constitutional: No chills, No diaphoresis EENTM: No Blurred Vision, No Double Vision Respiratory: Denies Cough, Denies Shortness of Air Cardiovascular: Denies Chest Pain, Denies Lightheadedness Gastrointestinal: See HPI; Denies Abdomen Distended; Abdominal Pain; Denies Constipated, Denies Diarrhea; Nausea; Denies Poor Fluid Intake; Vomiting Genitourinary: Denies Burning, Denies Discharge Musculoskeletal: No back pain, No joint pain All Other Systems Reviewed Negative Unless Noted: Yes Past [id number] Hx Patient Social History Tobacco Use?: No Use of E-Cig and/or Vaping dev: No Substance use?: No Immunizations Up To Date First/Initial COVID19 Vaccinat: 11/05/20 Second COVID19 Vaccination Iván: 12/03/20 Seasonal Allergies Seasonal Allergies: No Past Medical History Surgeries: Yes (L hip replaced, R TKR, hernia, head sx, ) Respiratory: No Cardiac: No Genitourinary: No Gastrointestinal: No Musculoskeletal: Yes (osteoarthritis) Arthritis Endocrine: No HEENT: Yes Hearing Impairment: Hard of Hearing Cancer: No Psychosocial: No Integumentary: No Blood Disorders: No Physical Exam Vital Signs Vital Signs - First Documented 05/30/22 17:08 Temp 36.4 Pulse 80 Resp 16 B/P (MAP) 144/80 (101) Pulse Ox 98 O2 Delivery Room Air Capillary Refill : Height/Weight/BMI Height: '" Weight: lbs. oz. kg; 19.00 BMI Method: General Appearance: WD/WN, mild distress HEENT: PERRL/EOMI, normal ENT inspection, pharynx normal Neck: full range of motion, supple, normal inspection Respiratory: lungs clear, normal breath sounds, no respiratory distress, no accessory muscle use Cardiovascular: normal peripheral pulses, regular rate, rhythm Peripheral Pulses: 2+ Radial Pulses (R), 2+ Radial Pulses (L) Gastrointestinal: normal bowel sounds, soft, no organomegaly, tenderness (Right lower quadrant tenderness without rebound tenderness or Rovsing sign.) Extremities: non-tender, normal inspection, no pedal edema, normal capillary refill Neurologic/Psychiatric: alert, normal mood/affect, oriented x 3 Skin: normal color, warm/dry Progress/Results/Core Measures Results/Orders Lab Results Laboratory Tests Test 05/30/22 17:15 05/30/22 18:32 Range/Units White Blood Count 11.2 H 4.3-11.0 10^3/uL Red Blood Count 4.72 4.30-5.52 10^6/uL Hemoglobin 14.4 13.3-17.7 g/dL Hematocrit 41 40-54 % Mean Corpuscular Volume 87 80-99 fL Mean Corpuscular Hemoglobin 31 25-34 pg Mean Corpuscular Hemoglobin Concent 35 32-36 g/dL Red Cell Distribution Width 12.7 10.0-14.5 % Platelet Count 298 130-400 10^3/uL Mean Platelet Volume 9.3 9.0-12.2 fL Immature Granulocyte % (Auto) 0 % Neutrophils (%) (Auto) 83 H 42-75 % Lymphocytes (%) (Auto) 10 L 12-44 % Monocytes (%) (Auto) 6 0-12 % Eosinophils (%) (Auto) 0 0-10 % Basophils (%) (Auto) 0 0-10 % Neutrophils # (Auto) 9.3 H 1.8-7.8 10^3/uL Lymphocytes # (Auto) 1.1 1.0-4.0 10^3/uL Monocytes # (Auto) 0.7 0.0-1.0 10^3/uL Eosinophils # (Auto) 0.1 0.0-0.3 10^3/uL Basophils # (Auto) 0.1 0.0-0.1 10^3/uL Immature Granulocyte # (Auto) 0.1 0.0-0.1 10^3/uL Sodium Level 137 135-145 MMOL/L Potassium Level 4.2 3.6-5.0 MMOL/L Chloride Level 105 98-107 MMOL/L Carbon Dioxide Level 23 21-32 MMOL/L Anion Gap 9 5-14 MMOL/L Blood Urea Nitrogen 21 H 7-18 MG/DL Creatinine 1.07 0.60-1.30 MG/DL Estimat Glomerular Filtration Rate 77 BUN/Creatinine Ratio 20 Glucose Level 128 H 70-105 MG/DL Calcium Level 9.2 8.5-10.1 MG/DL Corrected Calcium 9.0 8.5-10.1 MG/DL Total Bilirubin 0.3 0.1-1.0 MG/DL Aspartate Amino Transf (AST/SGOT) 15 5-34 U/L Alanine Aminotransferase (ALT/SGPT) 23 0-55 U/L Alkaline Phosphatase 76 40-136 U/L Total Protein 7.4 6.4-8.2 GM/DL Albumin 4.3 3.2-4.5 GM/DL Lipase 115 H 8-78 U/L Urine Color YELLOW Urine Clarity CLEAR Urine pH 7.0 5-9 Urine Specific [place] 1.020 1.016-1.022 Urine Protein NEGATIVE NEGATIVE Urine Glucose (UA) NEGATIVE NEGATIVE Urine Ketones NEGATIVE NEGATIVE Urine Nitrite NEGATIVE NEGATIVE Urine Bilirubin NEGATIVE NEGATIVE Urine Urobilinogen 0.2 < = 1.0 MG/DL Urine Leukocyte Esterase NEGATIVE NEGATIVE Urine RBC (Auto) TRACE-I H NEGATIVE Urine RBC 0-2 /HPF Urine WBC NONE /HPF Urine Squamous Epithelial Cells RARE /HPF Urine Crystals NONE /LPF Urine Bacteria NEGATIVE /HPF Urine Casts NONE /LPF Urine Mucus NEGATIVE /LPF Urine Culture Indicated NO My Orders Orders - FADY ASHBY Comprehensive Metabolic Panel (05/30/22 17:18) Lipase (05/30/22 17:18) Ua Culture If Indicated (05/30/22 17:18) Ed Iv/Invasive Line Start (05/30/22 17:18) Cbc With Automated Diff (05/30/22 17:18) Ed Iv/Invasive Line Start (05/30/22 17:18) Lactated Ringers (Lr 1000 Ml Iv Solution (05/30/22 17:30) Ketorolac Injection (Toradol Injection) (05/30/22 18:15) Ct Abd/Pelv W (Appendicitis) (05/30/22 18:59) Iohexol Injection (Omnipaque 350 Mg/Ml 1 (05/30/22 19:30) Ns (Ivpb) (Sodium Chloride 0.9% Ivpb Bag (05/30/22 19:30) Rx-Ondansetron Po (Rx-Zofran Po) (05/30/22 20:58) Rx-Hydrocodone/Apap 5-325 Mg (Rx-Vicodin (05/30/22 21:00) Tamsulosin Capsule (Flomax Capsule) (05/31/22 18:00) Cephalexin Capsule (Keflex Capsule) (05/30/22 21:00) Medications Given in ED Current Medications Medications Dose Ordered Sig/Diane Route Start Time Stop Time Status Last Admin Dose Admin Iohexol 100 ml ONCE ONCE IV 05/30/22 19:30 05/30/22 19:31 DC 05/30/22 19:41 75 ML Ketorolac Tromethamine 30 mg ONCE ONCE IVP 05/30/22 18:15 05/30/22 18:16 DC 05/30/22 18:24 30 MG Lactated Ringer's 1,000 ml @ 0 mls/hr Q0M ONCE IV 05/30/22 17:30 05/30/22 17:31 DC 05/30/22 17:23 999 MLS/HR Sodium Chloride 100 ml ONCE ONCE IV 05/30/22 19:30 05/30/22 19:31 DC 05/30/22 19:41 80 ML Vital Signs/I&O 05/30/22 17:08 Temp 36.4 Pulse 80 Resp 16 B/P (MAP) 144/80 (101) Pulse Ox 98 O2 Delivery Room Air Blood Pressure Mean: 101 Progress Progress Note #1: Time: 17:26 Progress Note The patient declining for nausea or pain. We will give a liter of fluids and get some labs and urine to help dictate whether a CT with or without IV contrast would be best. Kidney stone versus appendicitis versus other. Progress Note #2: Time: 21:01 Progress Note The patient's pain is under control. We will give him a take-home pack of on dansetron, hydrocodone, and a tablet of Flomax and cephalexin. Return precautions were given. Diagnostic Imaging Diagonstic Imaging: CT Plain Films/CT/US/NM/MRI: abdomen, pelvis Comments [facility] [place], [place] NAME: NASH C[place] Myla REC#: [id number] PT STATUS: REG ER : 1955 PHYSICIAN: FADY ASHBY MD ADMIT DATE: 05/30/22/ER Signed Date of Exam:05/30/22 CT ABD/PELV W (APPENDICITIS) PROCEDURE: CT abdomen and pelvis with contrast, rule out appendicitis. TECHNIQUE: Multiple contiguous axial images were obtained through the abdomen and pelvis after the administration of intravenous contrast. All CT scans use one or more of the following dose optimizing techniques: automated exposure control, MA and/or KvP adjustment based on patient size and exam type or iterative reconstruction. INDICATION: Right lower quadrant abdominal pain and flank pain. COMPARISON: None. FINDINGS: Mild atelectasis in the right lung base. Simple appearing cysts in the liver. Calcified granulomas in the liver. The gallbladder, pancreas and spleen are negative. Low-attenuation 1.7 cm nodule in the right adrenal gland likely represents benign adenoma. Bilateral parapelvic cysts. Left renal cortical cyst measuring up to 5.1 cm. Nonobstructing calyceal tip renal stones in the right kidney measuring up to 0.5 cm. 0.5 cm renal stone in the right ureteropelvic junction resulting in moderate right hydronephrosis. Small right cystocele measuring up to 2.2 cm. Normal appendix. Advanced colonic diverticulosis. Short segment bowel wall thickening of the sigmoid colon without significant adjacent inflammatory changes. No evidence of bowel obstruction. No free intraperitoneal air or fluid. No lymphadenopathy. Left MARICEL. No acute osseous finding. IMPRESSION: 1. 0.5 cm renal stone in the right ureteropelvic junction resulting in moderate right hydronephrosis. There are several additional nonobstructing calyceal tip renal stones in the right kidney. 2. Advanced colonic diverticulosis. Although there is no inflammatory change identified, there is a short segment of bowel wall thickening versus underdistention involving the sigmoid colon. Early or low-grade diverticulitis cannot entirely be excluded. Recommend follow-up with endoscopy when clinically appropriate to exclude an underlying mass. Dictated by: Dictated on workstation # [id number] Dict: 05/30/221950 Trans: 05/30/222053 [facility] [id number] Interpreted by: TEDDY AMARO MD Electronically signed by: TEDDY AMARO MD 05/30/222053 Reviewed: Reviewed by Me Departure Impression Primary Impression: Ureteral calculus, right Disposition: HOME, SELF-CARE Condition: Stable Departure-Patient Inst. Decision time for Depature: 21:01 Referrals: NO,LOCAL PHYSICIAN (PCP) Primary Care Physician LEONILA GAGNON MD Patient Instructions: Kidney Stones (DC), How to Strain Your Urine Add. Discharge Instructions: Drink plenty of fluids. Tylenol 1000 mg every 8 hours as needed for pain. Meloxicam or you may use the ibuprofen 800 mg every 8 hours as needed for pain. Hydrocodone 1 tablet every 6 hours as needed for severe pain. You may cut the tablet in half if needed. Hydrocodone will cause constipation as well as drowsiness. I recommend MiraLAX or some similar laxatives to stay regular if you use hydrocodone. Ondansetron 1 tablet under the tongue every 6 hours as needed for nausea and/or vomiting. Cephalexin 1 tablet twice a day to treat potential urinary tract infection. Flomax 1 capsule a day to help pass the kidney stone. If you are not able to pass the stone in the next 2 to 3 days then you may follow-up with the urologist of your choice. If you are having intractable pain, vomiting or other worrisome symptoms then I encourage you to return to the nearest ER for evaluation. All discharge instructions reviewed with patient and/or family. Voiced understanding. Scripts Cephalexin (Cephalexin) 500 Mg Tablet 500 MG PO BID for 7 Days, #14 TAB 0 Refills Prov: FADY ASHBY 05/30/22 Tamsulosin HCl (Flomax) 0.4 Mg Cap 0.4 MG PO HS for 7 Days, #7 CAP 0 Refills Prov: FADY ASHBY 05/30/22 Ondansetron (Ondansetron Odt) 4 Mg Tab.rapdis 4 MG PO Q6H PRN for NAUSEA/VOMITING, #8 TAB 0 Refills Prov: FADY ASHBY 05/30/22 Hydrocodone/Acetaminophen (Hydrocodone-Acetamin 5-325 mg) 5 Mg-325 Mg Tablet 1 TAB PO Q6H PRN for PAIN-MODERATE (5-7), #10 TAB 0 Refills Prov: FADY ASHBY 05/30/22 Copy Copies To 1: LEONILA GAGNON MD, TITUS J May 30, 2022 17:24
[2022-05-30] MEDS ORDERED: LACTATED RINGERS 1,000 ML IV ONE (17:30)
[2022-05-30 17:39] LABS: ALBUMIN 4.3 GM/DL (3.2-4.5)
[2022-05-30 17:40] LABS: POTASSIUM 4.2 MMOL/L (3.6-5.0)
[2022-05-30 17:41] LABS: CALCIUM 9.2 MG/DL (8.5-10.1)
[2022-05-30 17:42] LABS: TOTAL PROTEIN 7.4 GM/DL (6.4-8.2)
[2022-05-30 17:44] LABS: BILIRUBIN,TOTAL 0.3 MG/DL (0.1-1.0)
[2022-05-30 17:46] LABS: CREATININE SERUM 1.07 MG/DL (0.60-1.30)
[2022-05-30] MEDS ORDERED: KETOROLAC 30 MG/ML VIAL IVP ONE (18:15)
[2022-05-30 18:37] LABS: BILIRUBIN,URINE NEGATIVE (NEGATIVE); CLARITY,URINE CLEAR; COLOR,URINE YELLOW; GLUCOSE, URINE (UA) NEGATIVE (NEGATIVE); KETONES,URINE NEGATIVE (NEGATIVE); LEUKOCYTE ESTERASE ,URINE NEGATIVE (NEGATIVE); NITRITE,URINE NEGATIVE (NEGATIVE); PROTEIN,URINE NEGATIVE (NEGATIVE)
[2022-05-30 18:46] LABS: BACTERIA,URINE NEGATIVE /HPF; RBC,URINE 0-2 /HPF; SQUAMOUS EPITHELIAL CELL,UR RARE /HPF
[2022-05-30] MEDS ORDERED: NS 100 ML (IVPB) BAG IV ONE (19:30)
[2022-05-30] MEDS ORDERED: IOHEXOL 350 MG/ML 100 ML (OMNIPAQUE 350) VIAL IV ONE (19:30)
--- NOTE | 2022-05-30 20:01 | Diagnostic Imaging Report ---
PROCEDURE: CT abdomen and pelvis with contrast, rule out appendicitis. TECHNIQUE: Multiple contiguous axial images were obtained through the abdomen and pelvis after the administration of intravenous contrast. All CT scans use one or more of the following dose optimizing techniques: automated exposure control, MA and/or KvP adjustment based on patient size and exam type or iterative reconstruction. INDICATION: Right lower quadrant abdominal pain and flank pain. COMPARISON: None. FINDINGS: Mild atelectasis in the right lung base. Simple appearing cysts in the liver. Calcified granulomas in the liver. The gallbladder, pancreas and spleen are negative. Low-attenuation 1.7 cm nodule in the right adrenal gland likely represents benign adenoma. Bilateral parapelvic cysts. Left renal cortical cyst measuring up to 5.1 cm. Nonobstructing calyceal tip renal stones in the right kidney measuring up to 0.5 cm. 0.5 cm renal stone in the right ureteropelvic junction resulting in moderate right hydronephrosis. Small right cystocele measuring up to 2.2 cm. Normal appendix. Advanced colonic diverticulosis. Short segment bowel wall thickening of the sigmoid colon without significant adjacent inflammatory changes. No evidence of bowel obstruction. No free intraperitoneal air or fluid. No lymphadenopathy. Left MARICEL. No acute osseous finding. IMPRESSION: 1. 0.5 cm renal stone in the right ureteropelvic junction resulting in moderate right hydronephrosis. There are several additional nonobstructing calyceal tip renal stones in the right kidney. 2. Advanced colonic diverticulosis. Although there is no inflammatory change identified, there is a short segment of bowel wall thickening versus underdistention involving the sigmoid colon. Early or low-grade diverticulitis cannot entirely be excluded. Recommend follow-up with endoscopy when clinically appropriate to exclude an underlying mass. Dictated by: Dictated on workstation # [id number]
[2022-05-30] MEDS ORDERED: RX-ONDANSETRON 4 MG ODT (ZOFRAN) PPK #4 PO STA (20:58)
[2022-05-30] MEDS ORDERED: CEPHALEXIN 250 MG (KEFLEX) CAP PO ONE (21:00)
[2022-05-30] MEDS ORDERED: CEPH500T PO (21:05)
[2022-05-30] MEDS ORDERED: ONDA4TAB11 PO (21:05)
[2022-05-30] MEDS ORDERED: ACHD5005 PO (21:05)
[2022-05-30] MEDS ORDERED: TMSL.4C PO (21:05)
[2022-05-30] MEDS ORDERED: TAMSULOSIN 0.4 MG (FLOMAX) CAP PO ONE (21:07)
[2022-05-30 21:10] VITALS: BP 137/80
[2022-05-31] MEDS ORDERED: TAMSULOSIN 0.4 MG (FLOMAX) CAP PO SCH (18:00)
== END 2022-05-30 21:15 | disposition home or self-care (01) ==
LOC: EDUNIT# 17:03 → ER 17:05
DX: N13.2 Hydronephrosis with renal and ureteral calculous obstruction (principal)
CPT/HCPCS: 36415; 74177; 80053; 81000; 83690; 85025

== ENCOUNTER → 2022-06-29 | Outpatient (CLI) | payer MEDICARE ==
[~2022-06-29] MED LIST changes: +ACHD5005 PO; +CEPH500T PO; +NITR-65 PO; +ONDA4TAB11 PO; +PHEN-640 PO; +TMSL.4C PO
--- NOTE | 2022-06-29 15:20 | Diagnostic Imaging Report ---
REASON FOR EXAM: Right renal stone. COMPARISON: CT abdomen pelvis 05/30/2022. TECHNIQUE: Frontal supine view of the abdomen FINDINGS: The bowel gas pattern is nondistended. No large collection of free intraperitoneal air is seen. A moderate amount of gas and fecal material are present in the colon. The calculus in the proximal right ureter is visualized without significant change since the prior exam measuring 0.5 cm. The osseous structures are age-appropriate. IMPRESSION: 1. Stable appearance of the calculus in the proximal right ureter measuring 0.5 cm. No significant migration is seen. Dictated by: Dictated on workstation # [id number]
== END ==
LOC: RAD 11:56
PROVIDERS: ATTEND Urology
DX: N20.0 Calculus of kidney (principal)
CPT/HCPCS: 74018

== ENCOUNTER → 2022-06-29 | Outpatient (CLI) | payer MEDICARE ==
--- NOTE | 2022-06-29 15:27 | Diagnostic Imaging Report ---
PROCEDURE: CT urinary tract, rule out kidney stone. TECHNIQUE: Multiple contiguous axial images were obtained through the abdomen and pelvis without the use of intravenous contrast. Auto Exposure Controls were utilized during the CT exam to meet ALARA standards for radiation dose reduction. INDICATION: Right-sided pain. COMPARISON: Correlation is made to prior CT from 05/30/2022. FINDINGS: Lung bases are clear of acute infiltrates. Left lobe of the liver contains a small low-attenuation lesion, consistent with a cyst. This is stable. Gallbladder is unremarkable. There is no biliary ductal dilatation. Pancreas and spleen are unremarkable. Adrenal glands are stable. Parapelvic cysts involving bilateral kidneys are again noted. The right kidney also contains nonobstructing calculi, similar to prior exam. Proximal right ureteric calculus remains unchanged in position near the UPJ. There has been an increase in the degree of right-sided perinephric stranding and fluid, perhaps on the basis of forniceal rupture. The remainder of the right ureter is unremarkable. Left ureter is unremarkable. Bladder is unremarkable. Aorta is nonaneurysmal. Bowel loops are normal in caliber. There is diverticulosis of the descending and sigmoid colon but no evidence of acute diverticulitis. Cystic structure in the right pelvis is noted, likely a small bladder diverticulum. Large metal artifact through the pelvis is noted from patient's left hip arthroplasty. IMPRESSION: 1. Right-sided nonobstructing nephrolithiasis. There continues to be an approximately 4 to 5 mm calculus at the right UPJ. There is now an increase in the amount of right-sided perinephric inflammatory stranding and fluid, perhaps on the basis of forniceal rupture. 2. Uncomplicated diverticulosis. Dictated by: Dictated on workstation # [id number]
== END ==
LOC: RAD 14:49
PROVIDERS: ATTEND Urology
DX: N20.2 Calculus of kidney with calculus of ureter (principal); K57.30 Diverticulosis of large intestine without perforation or abscess without bleeding
CPT/HCPCS: 74176

== ENCOUNTER 2022-06-30 05:32 | Outpatient (CLI) | payer MEDICARE ==
[~2022-06-30] VITALS: Ht 180.3 cm; Wt 67.0 kg
[~2022-06-30 05:32] MED LIST changes: -NITR-65 PO; -PHEN-640 PO
[2022-07-01] MEDS ORDERED: NITR-65 PO ×2 (09:54)
[2022-07-01] MEDS ORDERED: PHEN-640 PO ×2 (09:54)
== END 2022-06-30 12:19 | disposition home or self-care (01) ==
LOC: PREOP 05:32
PROVIDERS: ATTEND Urology
DX: Z01.818 Encounter for other preprocedural examination (principal)

== ENCOUNTER 2022-07-01 06:22 | Day surgery (SDC) | payer MEDICARE ==
[~2022-07-01] VITALS: Ht 180 cm; Wt 67.0 kg
[2022-07-01] VITALS (8 sets, daily range): BP systolic 90–139; BP diastolic 56–80
[2022-07-01] MEDS ORDERED: cefTRIAXone 1 GM PRE-MIX 50 ML IV ONE (06:30)
[2022-07-01] MEDS ORDERED: CATHETER FLUSH 10 ML SYR IVP PRN (07:00)
--- NOTE | 2022-07-01 07:06 | Diagnostic Imaging Report ---
HISTORY: Cystoscopy COMPARISON: 06/29/2022 TECHNIQUE: Frontal view of the abdomen FINDINGS: Bowel loops appear nondistended. No large collection of free air is seen. There is a left hip arthroplasty and mild degenerative change in the right hip. There is mild left convex curvature of the lumbar spine. There appear to be several small calculi in the right kidney. There is a 4 mm calculus in the region of the right ureter projecting over the right L3 transverse process. IMPRESSION: 1. Right nephrolithiasis. Right ureteral calculus. 2. No bowel obstruction or large collection of free air. Dictated by: Dictated on workstation # [id number]
--- NOTE | 2022-07-01 07:17 | Progress Note-Pre Operative ---
Pre-Operative Progress Note Date of Available H&P: Jul 01, 2022 Date H&P Reviewed: Jul 01, 2022 Time H&P Reviewed: 07:16 Changes from last HP NONE Pre-Operative Diagnosis: RT PROXIMAL URETERAL STONE LEONILA GAGNON MD Jul 01, 2022 07:17
[2022-07-01] MEDS: LACTATED RINGERS 1,000 ML IV PRN ×2 (07:39→08:45)
[2022-07-01] MEDS ORDERED: fentaNYL INJ 100 MCG/2 ML AMP ONE (08:32)
[2022-07-01] MEDS ORDERED: proPOfol 200 MG/20 ML (DIPRIVAN) VIAL IV ONE (08:58)
[2022-07-01] MEDS ORDERED: LIDOCAINE PF 2% 5 ML (XYLOCAINE) VIAL ONE (08:58)
[2022-07-01] MEDS ORDERED: ONDANSETRON 4 MG/2 ML (SDV) Z0FRAN ONE (08:58)
[2022-07-01] MEDS ORDERED: SEVOFLURANE (ULTANE) 15 ML INHAL SOLN ONE (09:01)
--- NOTE | 2022-07-01 09:04 | Progress Note-Post Operative ---
Post-Operative Progess Note Surgeon (s)/Petroleum Refinery Laborer (s) Surgeon LEONILA GAGNON MD Petroleum Refinery Laborer: NONE Pre-Operative Diagnosis RT PROXIMAL URETERAL STONE Post-Operative Diagnosis SAME Procedure & Operative Findings Date of Procedure 07/01/22 Procedure Performed/Findings CYSTOSCOPY WITH RT URETERAL STONE MANIPULATION AND STENT Anesthesia Type GENERAL Estimated Blood Loss Estimated blood loss (mL): NONE Specimens/Packing Specimens Removed NONE Packing: NONE LEONILA GAGNON MD Jul 01, 2022 09:04
--- NOTE | 2022-07-01 09:06 | Discharge Inst-Urology ---
Discharge Inst-Urology Reconcile Patient Problems Problems Reviewed?: Yes Final Diagnosis RT PROXIMAL URETERAL STONE Patient Instructions/Follow Up Plan/Assessment/Instructions Please make appointment to been seen in office Friday 07/13, KUB prior to it. Increase oral fluids for 48 hours and then as needed. Diet and Activity as tolerated. If questions or concerns contact your physician Or seek help at emergency department. LEONILA GAGNON MD Jul 01, 2022 09:06
--- NOTE | 2022-07-01 09:10 | Anesthesia-General Post-Op ---
General Patient Condition Mental Status/LOC: Same as Preop Cardiovascular: Satisfactory Nausea/Vomiting: Absent Respiratory: Satisfactory Pain: Controlled Complications: Absent Post Op Complications Complications None Follow Up Care/Instructions Patient Instructions None needed. Anesthesia/Patient Condition Patient Condition Patient is doing well, no complaints, stable vital signs, no apparent adverse anesthesia problems. No complications reported per nursing. RYLEY JACKSON CRNA Jul 01, 2022 09:10
[2022-07-01] MEDS ORDERED: fentaNYL INJ 100 MCG/2 ML AMP IVP ONE (09:15)
[2022-07-01] MEDS ORDERED: ONDANSETRON 4 MG/2 ML (SDV) Z0FRAN IVP PRN (09:15)
[2022-07-01] MEDS ORDERED: NITR-65 PO ×2 (09:54)
[2022-07-01] MEDS ORDERED: PHEN-640 PO ×2 (09:54)
--- NOTE | 2022-07-01 17:02 | OPERATIVE REPORT ---
DATE OF SERVICE: 07/01/2022 PREOPERATIVE DIAGNOSIS: Right proximal ureteral stone. POSTOPERATIVE DIAGNOSIS: Right proximal ureteral stone. OPERATION PERFORMED: Cystoscopy with right ureteral stone manipulation, and insertion of right double-J stent. SURGEON: Angel Gagnon MD ANESTHESIA: General. COMPLICATIONS: None. DESCRIPTION OF PROCEDURE: Under satisfactory general anesthesia, the patient in lithotomy position, genitalia were prepped and draped in the usual sterile fashion. A cystoscope was introduced under vision. The anterior urethra was normal. The prostate was nonobstructing. Bladder neck was open. Bladder revealed some trabeculations. Ureteric orifices normal in shape, size and configuration with clear efflux, sluggish on the right side. The stone was pretty high to reach with the semirigid ureteroscope and I did not want to attempt for fear of running into problem, so I passed a 6-[place] Citizen 26 cm double-J stent and bypass the stone. I removed the guidewire, and the stent was seen nicely proximally fluoroscopically and distally endoscopically. I emptied the bladder, removed the cystoscope and plan to do a ESWL on the . Job ID: [id number] DocumentID: [id number] Dictated Date: 07/01/2022 09:07:51 Ghost Writer Date: 07/01/2022 17:01:24 Dictated By: ANGEL GAGNON MD
== END 2022-07-01 10:45 | disposition home or self-care (01) ==
LOC: SDC 06:22
PROVIDERS: ATTEND Urology
DX: N20.1 Calculus of ureter (principal); M19.90 Unspecified osteoarthritis, unspecified site
CPT/HCPCS: 52332; 52352; 74018; 76000; 87081; C2625

== ENCOUNTER → 2022-07-07 | Outpatient (CLI) | payer MEDICARE ==
[~2022-07-07] MED LIST changes: +KETO10TA PO; +NITR-65 PO; +PHEN-640 PO
== END | disposition home or self-care (01) ==
LOC: PREOP 05:29
PROVIDERS: ATTEND Urology
DX: Z01.818 Encounter for other preprocedural examination (principal)

== ENCOUNTER → 2022-07-13 | Outpatient (CLI) | payer MEDICARE ==
--- NOTE | 2022-07-13 16:47 | Diagnostic Imaging Report ---
INDICATION: Ureteral stent placement. History of ureteral calculus. COMPARISON: 07/01/2022. FINDINGS: Single frontal radiographic view of the abdomen was obtained and demonstrates interval placement of right-sided double-J ureteral stent. Patency and exact position of the stent cannot be assessed on this exam. 3 mm calculus is again identified projecting on the right at the L2-L3 level, presumably at the UP junction. Small bowel loops are nondistended. There is no large collection of free intraperitoneal air. IMPRESSION: 1. New right-sided double-J ureteral stent. 2. Probable 3 mm calculus at the right UPJ. Dictated by: Dictated on workstation # [id number]
== END ==
LOC: RAD 15:00
PROVIDERS: ATTEND Urology
DX: Z96.0 Presence of urogenital implants (principal); Z87.442 Personal history of urinary calculi
CPT/HCPCS: 74018

== ENCOUNTER 2022-07-14 07:55 | Day surgery (SDC) | payer MEDICARE ==
[2022-07-14] VITALS (9 sets, daily range): BP systolic 91–141; BP diastolic 58–88
[~2022-07-14] VITALS: Ht 180.3 cm; Wt 67.0 kg
[~2022-07-14 07:55] MED LIST changes: -KETO10TA PO
[2022-07-14] MEDS ORDERED: LACTATED RINGERS 1,000 ML IV PRN (08:30)
--- NOTE | 2022-07-14 08:39 | Progress Note-Pre Operative ---
Pre-Operative Progress Note Date of Available H&P: Jul 14, 2022 Date H&P Reviewed: Jul 14, 2022 Time H&P Reviewed: 08:39 Changes from last HP NONE Pre-Operative Diagnosis: RT PROXIMAL URETERAL STONE LEONILA GAGNON MD Jul 14, 2022 08:39
--- NOTE | 2022-07-14 08:39 | Diagnostic Imaging Report ---
INDICATION: Lithotripsy. COMPARISON: 07/13/2022. TECHNIQUE: Single radiograph of the abdomen dated 07/14/2022. FINDINGS: The right sided ureteral stent is again identified, appearing similar to the prior examination. A faint 3 mm hyperdensity is again suggested abutting the proximal right ureteral stent. No additional suspicious calcifications overlying the right ureteral stent. No calcifications overlying the left renal shadow. Nonobstructed bowel gas pattern. No free air. Left hip arthroplasty. Scattered osseous degenerative changes. [place] left curvature of the spine. No acute osseous abnormality. IMPRESSION: The right-sided ureteral stent remains in place with a probable 3 mm calculus overlying the proximal right stent, appearing similar to the prior examination. Nonobstructed bowel gas pattern. Dictated by: Dictated on workstation # [id number]
[2022-07-14] MEDS ORDERED: cefTRIAXone 1 GM PRE-MIX 50 ML IV ONE (09:00)
[2022-07-14] MEDS ORDERED: MIDAZOLAM 2 MG/2 ML (VERSED) VIAL ONE (10:56)
[2022-07-14] MEDS ORDERED: fentaNYL INJ 100 MCG/2 ML AMP ONE (10:56)
--- NOTE | 2022-07-14 11:09 | Progress Note-Post Operative ---
Post-Operative Progess Note Surgeon (s)/American Indian Policy Specialist (s) Surgeon LEONILA GAGNON MD American Indian Policy Specialist: NONE Pre-Operative Diagnosis RT PROXIMAL URETERAL STONE Post-Operative Diagnosis SAME Procedure & Operative Findings Date of Procedure 07/14/22 Procedure Performed/Findings RT ESWL, CYSTO AND DC STENT Anesthesia Type GENERAL Estimated Blood Loss Estimated blood loss (mL): NONE Specimens/Packing Specimens Removed NONE TO PATH Packing: NONE LEONILA GAGNON MD Jul 14, 2022 11:09
[2022-07-14] MEDS ORDERED: proPOfol 200 MG/20 ML (DIPRIVAN) VIAL IV ONE (11:15)
[2022-07-14] MEDS ORDERED: KETOROLAC 30 MG/ML VIAL ONE (11:16)
[2022-07-14] MEDS ORDERED: LIDOCAINE PF 2% 5 ML (XYLOCAINE) VIAL ONE (11:16)
[2022-07-14] MEDS ORDERED: ONDANSETRON 4 MG/2 ML (SDV) Z0FRAN ONE (11:16)
--- NOTE | 2022-07-14 11:26 | Discharge Inst-Urology ---
Discharge Inst-Urology Reconcile Patient Problems Problems Reviewed?: Yes Final Diagnosis RT PROXIMAL URETERAL STONE Patient Instructions/Follow Up Plan/Assessment/Instructions Please make appointment to been seen in office Friday 07/27, KUB prior to it KUB on way home Stay off ASA Post ESWL instructions Increase oral fluids for 48 hours and then as needed. Diet and Activity as tolerated. If questions or concerns contact your physician Or seek help at emergency department. LEONILA GAGNON MD Jul 14, 2022 11:26
[2022-07-14] MEDS ORDERED: SEVOFLURANE (ULTANE) 15 ML INHAL SOLN ONE (11:37)
[2022-07-14] MEDS ORDERED: NITR-65 PO (12:50)
[2022-07-14] MEDS ORDERED: TMSL.4C PO (12:50)
[2022-07-14] MEDS ORDERED: KETO10TA PO (12:50)
--- NOTE | 2022-07-14 13:59 | Diagnostic Imaging Report ---
INDICATION: Post lithotripsy. COMPARISON: Imaging from this same date. TECHNIQUE: Single radiograph of the abdomen dated 07/14/2022. FINDINGS: Interval removal of the previously noted right ureteral stent. 0.3 cm calcification overlying the expected location of the proximal right ureter is again identified, appearing stable. Additional punctate calcification overlying the central aspect of the right kidney is again noted. No suspicious calcifications overlying the left renal shadow. Nonobstructed bowel gas pattern. No free air. Left hip arthroplasty. [place] left curvature of the spine with scattered degenerative changes. No acute osseous abnormality. IMPRESSION: Interval removal of the previously noted right ureteral stent. 3 mm calcification overlying the proximal right ureter/ureteropelvic junction is again identified, appearing similar. Dictated by: Dictated on workstation # [id number]
--- NOTE | 2022-07-14 19:04 | OPERATIVE REPORT ---
DATE OF SERVICE: 07/14/2022 PREOPERATIVE DIAGNOSIS: Right proximal ureteral stone. POSTOPERATIVE DIAGNOSIS: Right proximal ureteral stone. PROCEDURE PERFORMED: Right ESWL with cystoscopy and removal of right stent. SURGEON: Dr. Gagnon. ANESTHESIA: General. COMPLICATIONS: None. DESCRIPTION OF PROCEDURE: Under satisfactory general anesthesia, the patient was in supine position on the ESWL table. We localized the right proximal ureteral stone. Shocks were delivered at a kV of 6 . We went ahead and prepped the genitalia and draped them. I passed the flexible cystoscope all the way into the bladder, visualized the distal end of the stent, it was grasped with forceps and removed completely. We finished up the procedure, was a total of 2500 shocks with excellent fragmentation of the stone. The patient received 40 mg of Lasix and 30 mg of Toradol IV at the end of the procedure. He tolerated the procedure, anesthesia well and was sent to the recovery room in stable condition. Job ID: [id number] DocumentID: [id number] Dictated Date: 07/14/2022 11:32:09 Adolescent Medicine Specialist Date: 07/14/2022 19:02:00 Dictated By: LEONILA GAGNON MD
== END 2022-07-14 13:40 | disposition home or self-care (01) ==
LOC: SDC 07:55
PROVIDERS: ATTEND Urology
DX: N20.1 Calculus of ureter (principal); M19.90 Unspecified osteoarthritis, unspecified site
CPT/HCPCS: 74018; 87081

== ENCOUNTER → 2022-07-27 | Outpatient (CLI) | payer MEDICARE ==
[~2022-07-27] MED LIST changes: +KETO10TA PO
--- NOTE | 2022-07-27 18:25 | Diagnostic Imaging Report ---
REASON FOR EXAM: Follow-up renal stones. Post ESWL. COMPARISON: 07/14/2022. TECHNIQUE: frontal supine view of the abdomen FINDINGS: The previously visualized faint calcifications in the area of the right kidney are not visualized on today's exam. No new calcifications are seen along the expected course of the right ureter. No evidence of bowel obstruction. No acute osseous abnormalities. IMPRESSION: The faint calcifications seen overlying the right kidney are no longer visualized and may have passed. No new calcifications are seen. Recommend correlation with patient history and symptoms and follow-up as indicated. Dictated by: Dictated on workstation # [id number]
== END ==
LOC: RAD 12:26
PROVIDERS: ATTEND Urology
DX: N20.1 Calculus of ureter (principal); Z98.890 Other specified postprocedural states
CPT/HCPCS: 74018